=== PATIENT | male | born 1955 | race Caucasian/White ===

== ENCOUNTER → 2017-03-01 | Outpatient (CLI) | payer MEDICARE | LOC: M.CT 11:00 | DX: I71.4 Abdominal aortic aneurysm, without rupture (principal); I70.0 Atherosclerosis of aorta; Z90.49 Acquired absence of other specified parts of digestive tract ==

== ENCOUNTER → 2018-05-08 | Outpatient (CLI) | payer MEDICARE | LOC: M.CT 08:18 | DX: J18.9 Pneumonia, unspecified organism (principal); R91.8 Other nonspecific abnormal finding of lung field; Z88.8 Allergy status to other drugs, medicaments and biological substances; Z87.891 Personal history of nicotine dependence; Z90.49 Acquired absence of other specified parts of digestive tract ==

== ENCOUNTER → 2019-07-30 | Outpatient (CLI) | payer MEDICARE | LOC: M.ULTRA 08:36 | PROVIDERS: ATTEND Family Medicine | DX: K76.0 Fatty (change of) liver, not elsewhere classified (principal); R14.0 Abdominal distension (gaseous); Z90.49 Acquired absence of other specified parts of digestive tract ==

== ENCOUNTER → 2019-10-31 | Outpatient (CLI) | payer MEDICARE | LOC: M.CT 07:41 | PROVIDERS: ATTEND Family Medicine | DX: C34.90 Malignant neoplasm of unspecified part of unspecified bronchus or lung (principal); I77.810 Thoracic aortic ectasia; E04.1 Nontoxic single thyroid nodule; J98.4 Other disorders of lung ==